=== PATIENT | female | born 1965 | race Asian ===

== ENCOUNTER 2021-08-08 06:53 | Outpatient (CLI) | payer BC ==
[2021-08-08 09:32] LABS: *BILIRUBIN,URIN NEGATIVE (NEGATIVE); *BLOOD, URINE NEGATIVE (NEGATIVE); *CLARITY,URINE CLEAR (CLEAR); *COLOR,URINE YELLOW (YELLOW); *KETONES,URINE NEGATIVE (NEGATIVE); *UROBILINOGEN,URINE 0.2 E.U./dl (NORMAL); LEUKOCYTE ESTERASE ,URINE NEGATIVE (NEGATIVE); NITRITE, URINE NEGATIVE (NEGATIVE); UGLUCOSE NEGATIVE (NEGATIVE)
[2021-08-08 09:53] LABS: HEMATOCRIT 28.2 % (31.2-41.9); MEAN CORPUSCULAR HEMOGLOBIN 18.9 uug (24.7-32.8); MEAN CORPUSCULAR VOLUME 62.4 fL (75.5-95.3); PLATELET COUNT (AUTO) 304 K/uL (179-408)
[2021-08-08 10:13] LABS: THYROID STIMULATING HORMONE 1.294 mIU/mL (0.358-3.740)
[2021-08-08 10:30] LABS: BILIRUBIN,TOTAL 0.8 mg/dL (0.2-1.0); CREATININE 0.8 mg/dL (0.6-1.3); POTASSIUM 3.8 mmol/L (3.5-5.1); URIC ACID 6.2 mg/dL (2.6-6.0)
[2021-08-08 10:44] LABS: TOTAL PROTEIN, SERUM 8.3 g/dL (6.4-8.2)
[2021-08-08 17:06] LABS: BAND % (MANUAL) 1 % (0-10); EOSINOPHILS % (MANUAL) 14 % (0-8); LYMPHOCYTES % (MANUAL) 32 % (20-40); MONOCYTES % (MANUAL) 5 % (2-10); NEUTROPHILS % (MANUAL) 41 % (42-75)
[2021-08-12 16:06] LABS: *VITAMIN D 25-OH, D2 <1.0 ng/mL (.)
== END 2021-08-08 23:59 | disposition home or self-care (01) ==
LOC: LAB 06:53
PROVIDERS: ATTEND Legal Medicine
DX: E11.9 Type 2 diabetes mellitus without complications (principal); E78.5 Hyperlipidemia, unspecified; E03.9 Hypothyroidism, unspecified; D64.9 Anemia, unspecified; E55.9 Vitamin D deficiency, unspecified; Z00.00 Encounter for general adult medical examination without abnormal findings
CPT/HCPCS: 36415; 70030-TC; 82746; 83550; 84443; 84550; 85025; 87086

== ENCOUNTER 2022-08-20 08:11 | Outpatient (CLI) | payer BC ==
[2022-08-20 08:42] LABS: *BILIRUBIN,URIN NEGATIVE (NEGATIVE); *BLOOD, URINE NEGATIVE (NEGATIVE); *CLARITY,URINE CLEAR (CLEAR); *COLOR,URINE YELLOW (YELLOW); *KETONES,URINE NEGATIVE (NEGATIVE); *UROBILINOGEN,URINE 0.2 E.U./dl (NORMAL); LEUKOCYTE ESTERASE ,URINE NEGATIVE (NEGATIVE); NITRITE, URINE NEGATIVE (NEGATIVE); PH,URINE 6.5 (5.0-8.0); UGLUCOSE NEGATIVE (NEGATIVE)
[2022-08-20 08:44] LABS: HEMATOCRIT 44.5 % (31.2-41.9); MEAN CORPUSCULAR HEMOGLOBIN 30.5 uug (24.7-32.8); MEAN CORPUSCULAR VOLUME 89.1 fL (75.5-95.3); PLATELET COUNT (AUTO) 228 K/uL (179-408)
[2022-08-20 09:52] LABS: BILIRUBIN,TOTAL 0.7 mg/dL (0.2-1.0); CREATININE 0.8 mg/dL (0.6-1.3); POTASSIUM 3.8 mmol/L (3.5-5.1); TOTAL PROTEIN, SERUM 8.2 g/dL (6.4-8.2); URIC ACID 6.5 mg/dL (2.6-6.0)
[2022-08-20 10:14] LABS: THYROID STIMULATING HORMONE 1.416 mIU/mL (0.358-3.740)
== END 2022-08-20 23:59 | disposition home or self-care (01) ==
LOC: LAB 08:11
PROVIDERS: ATTEND Legal Medicine
DX: Z00.00 Encounter for general adult medical examination without abnormal findings (principal); E78.00 Pure hypercholesterolemia, unspecified; R53.1 Weakness; I10 Essential (primary) hypertension; D64.9 Anemia, unspecified; E55.9 Vitamin D deficiency, unspecified; E03.9 Hypothyroidism, unspecified
CPT/HCPCS: 36415; 82306; 82746; 83550; 84443; 84550; 85025

== ENCOUNTER 2023-03-13 15:36 | Outpatient (CLI) | payer BC ==
[2023-03-13 16:10] LABS: HEMATOCRIT 25.9 % (31.2-41.9); MEAN CORPUSCULAR HEMOGLOBIN 29.4 uug (24.7-32.8); MEAN CORPUSCULAR VOLUME 87.4 fL (75.5-95.3); PLATELET COUNT (AUTO) 345 K/uL (179-408)
[2023-03-13 16:34] LABS: ALANINE AMINOTRANSFERASE 21 U/L (14-59); ALKALINE PHOSPHATASE 60 U/L (50-136); ASPARTATE AMINOTRANSFERASE 14 U/L (15-37); BILIRUBIN,TOTAL 0.4 mg/dL (0.2-1.0); CARBON DIOXIDE 30 mmol/L (21-32); CHLORIDE 104 mmol/L (98-107); CREATININE 0.8 mg/dL (0.6-1.3); GLUCOSE 100 mg/dL (74-106); POTASSIUM 3.9 mmol/L (3.5-5.1); TOTAL PROTEIN, SERUM 7.7 g/dL (6.4-8.2); UREA NITROGEN, BLOOD 8 mg/dL (7-18)
[2023-03-13 16:51] LABS: IRON, SERUM 13 ug/dL (50-175)
[2023-03-13 19:31] LABS: FERRITIN 8 ng/mL (8-252)
[2023-03-14 06:07] LABS: CANCER ANTIGEN 15-3 37.4 U/mL (0.0-25.0)
== END 2023-03-13 23:59 | disposition home or self-care (01) ==
LOC: LAB 15:36
PROVIDERS: ATTEND Internal Medicine Hematology & Oncology
DX: Z13.228 Encounter for screening for other metabolic disorders (principal); C50.011 Malignant neoplasm of nipple and areola, right female breast; D64.9 Anemia, unspecified; R97.0 Elevated carcinoembryonic antigen [CEA]
CPT/HCPCS: 36415; 82378; 83550; 85025; 86300

== ENCOUNTER 2023-03-14 06:55 | Outpatient (CLI) | payer BC ==
[2023-03-14] MEDS ORDERED: IOHEXOL 300MG/ML 100 ML INFUS..BTL ONE (08:50)
[2023-03-14] MEDS ORDERED: IV NORMAL SALINE 250 ML IV ONE (08:50)
[2023-03-14] MEDS ORDERED: SWABABLE VALVE TRANSFER SET EA MC ONE (08:50)
== END 2023-03-14 23:59 | disposition home or self-care (01) ==
LOC: CT 06:55
PROVIDERS: ATTEND Internal Medicine Hematology & Oncology
DX: Z01.818 Encounter for other preprocedural examination (principal); C50.912 Malignant neoplasm of unspecified site of left female breast; N63.10 Unspecified lump in the right breast, unspecified quadrant; R16.0 Hepatomegaly, not elsewhere classified
CPT/HCPCS: 71270; 71046; 74178; Q9967

== ENCOUNTER 2023-03-21 06:42 | Day surgery (SDC) | payer BC ==
[2023-03-21] MEDS ORDERED: LIDOCAINE HCL 1% 20 ML VIAL ONE (07:33)
[2023-03-21] MEDS ORDERED: FENTANYL CITRATE 100 MCG/2 ML AMPUL ONE (07:35)
[2023-03-21] MEDS ORDERED: CEFAZOLIN 2 G in IV DEXTROSE 5% 100 ML IV ONE (08:00)
[2023-03-21] MEDS ORDERED: HEPARIN/NS 500 ML ONE (09:12)
[2023-03-21] MEDS ORDERED: HEPARIN SODIUM,PORCINE 1,000 UNITS/ML VIAL ONE (09:12)
[2023-03-21] MEDS ORDERED: LIDOCAINE-MPF 2% 5 ML VIAL ONE (10:36)
[2023-03-21] MEDS ORDERED: PROPOFOL 200 MG/20 ML BOTTLE ONE (10:36)
[2023-03-21] MEDS ORDERED: ONDANSETRON 4 MG/2 ML VIAL ONE (11:57)
[2023-03-21 13:00] VITALS: TEMP 97.8
== END 2023-03-21 13:25 | disposition home or self-care (01) ==
LOC: DS 06:42
PROVIDERS: ATTEND Surgery
DX: C50.112 Malignant neoplasm of central portion of left female breast (principal); D50.9 Iron deficiency anemia, unspecified; Z79.899 Other long term (current) drug therapy; Z98.890 Other specified postprocedural states
CPT/HCPCS: 71045; 76937; A4649; A4663; C1788; J0690; J1644; J2405; J3010; J3490

== ENCOUNTER 2023-04-01 12:25 | Outpatient (CLI) | payer BC ==
[~2023-04-01 12:25] MED LIST: FENTANYL 50 MCG/ML SYRINGE IV PRN; FLUMAZENIL 0.5 MG/5 ML VIAL IVP PRN; MIDAZOLAM HCL 2 MG/2 ML VIAL IV PRN; NALOXONE HCL 0.4 MG/ML AMPUL IV PRN
[2023-04-01] MEDS ORDERED: LIDOCAINE HCL 1% 20 ML VIAL ONE (12:50)
== END 2023-04-01 23:59 | disposition home or self-care (01) ==
LOC: CT 12:25
PROVIDERS: ATTEND Internal Medicine Hematology & Oncology
DX: K76.89 Other specified diseases of liver (principal); C50.912 Malignant neoplasm of unspecified site of left female breast; Z79.899 Other long term (current) drug therapy
CPT/HCPCS: 47000; 77012; J2250; J3010; J3490; J7120; 70030-TC; 74150; 88313-TC; 88333-TC; 88341; 88342; 88360; A4663

== ENCOUNTER 2023-04-04 14:19 | Outpatient (CLI) | payer BC | END 2023-04-04 23:59 | disposition home or self-care (01) | LOC: LAB 14:19 → RAD 23:59 | PROVIDERS: ATTEND Internal Medicine Hematology & Oncology | DX: E04.2 Nontoxic multinodular goiter (principal); D64.9 Anemia, unspecified ==

== ENCOUNTER 2023-04-29 07:33 | Outpatient (CLI) | payer BC ==
[~2023-04-29 07:33] MED LIST changes: +ASPI81TA31 PO; -FENTANYL 50 MCG/ML SYRINGE IV PRN; -FLUMAZENIL 0.5 MG/5 ML VIAL IVP PRN; +HYDR-3972 PO; +LIDO30AD10 TP; -MIDAZOLAM HCL 2 MG/2 ML VIAL IV PRN; -NALOXONE HCL 0.4 MG/ML AMPUL IV PRN; +TAMO20TA4 PO
[2023-04-29 08:06] LABS: BASOPHILS % (AUTO) 1.1 % (0.0-2.0); EOSINOPHILS # (AUTO) 0.1 K/uL (0.0-0.7); EOSINOPHILS % (AUTO) 2.1 % (0.0-7.0); HEMATOCRIT 31.2 % (31.2-41.9); HEMOGLOBIN 9.8 g/dL (10.9-14.3); LYMPHOCYTES # (AUTO) 0.9 K/uL (0.8-4.8); LYMPHOCYTES % (AUTO) 20.6 % (20.5-51.5); MEAN CORPUSCULAR HEMOGLOBIN 26.7 uug (24.7-32.8); MEAN CORPUSCULAR HGB CONC 31 g/dL (32.3-35.6); MEAN CORPUSCULAR VOLUME 85.1 fL (75.5-95.3); MONOCYTES # (AUTO) 0.3 K/uL (0.1-1.30); MONOCYTES % (AUTO) 6.1 % (0.0-11.0); NEUTROPHILS # (AUTO) 3.2 K/uL (1.8-8.9); NEUTROPHILS % (AUTO) 70.1 % (38.5-71.5); PLATELET COUNT (AUTO) 263 K/uL (179-408); RED BLOOD CELL COUNT(AUTO) 3.66 MIL/uL (3.63-4.92); RED CELL DISTRIBUTION WIDTH 25.8 % (12.3-17.7); WHITE BLOOD COUNT (AUTO) 4.5 K/uL (3.8-11.8)
[2023-04-29 08:12] LABS: DIFFERENTIAL COMMENT 1
[2023-04-29 08:32] LABS: ALBUMIN 3.7 g/dL (3.4-5.0); BILIRUBIN,TOTAL 0.4 mg/dL (0.2-1.0); CALCIUM 8.2 mg/dL (8.5-10.1); CREATININE 0.7 mg/dL (0.6-1.3); POTASSIUM 3.6 mmol/L (3.5-5.1); TOTAL PROTEIN, SERUM 7.3 g/dL (6.4-8.2)
== END 2023-04-29 23:59 | disposition home or self-care (01) ==
LOC: LAB 07:33
PROVIDERS: ATTEND Internal Medicine Hematology & Oncology
DX: Z13.228 Encounter for screening for other metabolic disorders (principal); D64.9 Anemia, unspecified
CPT/HCPCS: 36415; 83550; 85025

== ENCOUNTER 2023-06-17 09:13 | Outpatient (CLI) | payer BC ==
[2023-06-17 09:39] LABS: BASOPHILS % (AUTO) 0.2 % (0.0-2.0); EOSINOPHILS # (AUTO) 0.2 K/uL (0.0-0.7); EOSINOPHILS % (AUTO) 1.5 % (0.0-7.0); HEMATOCRIT 25.7 % (31.2-41.9); HEMOGLOBIN 8.2 g/dL (10.9-14.3); LYMPHOCYTES # (AUTO) 1.2 K/uL (0.8-4.8); LYMPHOCYTES % (AUTO) 7.8 % (20.5-51.5); MEAN CORPUSCULAR HEMOGLOBIN 28.2 uug (24.7-32.8); MEAN CORPUSCULAR HGB CONC 32 g/dL (32.3-35.6); MEAN CORPUSCULAR VOLUME 88.5 fL (75.5-95.3); MONOCYTES # (AUTO) 0.5 K/uL (0.1-1.30); MONOCYTES % (AUTO) 3.6 % (0.0-11.0); NEUTROPHILS # (AUTO) 12.9 K/uL (1.8-8.9); NEUTROPHILS % (AUTO) 86.9 % (38.5-71.5); PLATELET COUNT (AUTO) 180 K/uL (179-408); RED BLOOD CELL COUNT(AUTO) 2.91 MIL/uL (3.63-4.92); RED CELL DISTRIBUTION WIDTH 21.2 % (12.3-17.7); WHITE BLOOD COUNT (AUTO) 14.9 K/uL (3.8-11.8)
[2023-06-17 09:52] LABS: ALBUMIN 3.4 g/dL (3.4-5.0); BILIRUBIN,TOTAL 0.4 mg/dL (0.2-1.0); CALCIUM 9.1 mg/dL (8.5-10.1); CREATININE 0.7 mg/dL (0.6-1.3); TOTAL PROTEIN, SERUM 6.6 g/dL (6.4-8.2)
[2023-06-17 10:16] LABS: DIFFERENTIAL COMMENT 1
== END 2023-06-17 23:59 | disposition home or self-care (01) ==
LOC: LAB 09:13
PROVIDERS: ATTEND Internal Medicine Hematology & Oncology
DX: Z13.228 Encounter for screening for other metabolic disorders (principal); D64.9 Anemia, unspecified
CPT/HCPCS: 36415; 85025

== ENCOUNTER 2023-10-07 09:45 | Outpatient (CLI) | payer BC ==
[2023-10-07 10:39] LABS: BASOPHILS % (AUTO) 0.9 % (0.0-2.0); EOSINOPHILS # (AUTO) 0.1 K/uL (0.0-0.7); EOSINOPHILS % (AUTO) 2.2 % (0.0-7.0); HEMATOCRIT 39.3 % (31.2-41.9); LYMPHOCYTES # (AUTO) 1.3 K/uL (0.8-4.8); LYMPHOCYTES % (AUTO) 25.1 % (20.5-51.5); MEAN CORPUSCULAR HEMOGLOBIN 29.7 uug (24.7-32.8); MEAN CORPUSCULAR HGB CONC 33 g/dL (32.3-35.6); MEAN CORPUSCULAR VOLUME 89.4 fL (75.5-95.3); MONOCYTES # (AUTO) 0.3 K/uL (0.1-1.30); MONOCYTES % (AUTO) 5.5 % (0.0-11.0); NEUTROPHILS # (AUTO) 3.4 K/uL (1.8-8.9); NEUTROPHILS % (AUTO) 66.3 % (38.5-71.5); PLATELET COUNT (AUTO) 313 K/uL (179-408); RED BLOOD CELL COUNT(AUTO) 4.39 MIL/uL (3.63-4.92); RED CELL DISTRIBUTION WIDTH 14.5 % (12.3-17.7); WHITE BLOOD COUNT (AUTO) 5.1 K/uL (3.8-11.8)
[2023-10-07 10:43] LABS: DIFFERENTIAL COMMENT 1
[2023-10-07 11:00] LABS: ALBUMIN 3.8 g/dL (3.4-5.0); BILIRUBIN,TOTAL 0.3 mg/dL (0.2-1.0); CALCIUM 9.2 mg/dL (8.5-10.1); CREATININE 0.6 mg/dL (0.6-1.3); POTASSIUM 4.3 mmol/L (3.5-5.1); TOTAL PROTEIN, SERUM 7.8 g/dL (6.4-8.2)
== END 2023-10-07 23:59 | disposition home or self-care (01) ==
LOC: LAB 09:45
PROVIDERS: ATTEND Internal Medicine Hematology & Oncology
DX: Z13.228 Encounter for screening for other metabolic disorders (principal); D64.9 Anemia, unspecified
CPT/HCPCS: 36415; 83550; 85025

== ENCOUNTER 2023-10-28 09:40 | Outpatient (CLI) | payer BC ==
[2023-10-28 10:17] LABS: BASOPHILS % (AUTO) 0.6 % (0.0-2.0); EOSINOPHILS # (AUTO) 0.1 K/uL (0.0-0.7); EOSINOPHILS % (AUTO) 2.2 % (0.0-7.0); HEMATOCRIT 40.4 % (31.2-41.9); HEMOGLOBIN 13.4 g/dL (10.9-14.3); LYMPHOCYTES # (AUTO) 1.1 K/uL (0.8-4.8); MEAN CORPUSCULAR HEMOGLOBIN 30.1 uug (24.7-32.8); MEAN CORPUSCULAR HGB CONC 33 g/dL (32.3-35.6); MEAN CORPUSCULAR VOLUME 90.6 fL (75.5-95.3); MONOCYTES # (AUTO) 0.3 K/uL (0.1-1.30); MONOCYTES % (AUTO) 5.7 % (0.0-11.0); NEUTROPHILS # (AUTO) 3.9 K/uL (1.8-8.9); NEUTROPHILS % (AUTO) 71.5 % (38.5-71.5); PLATELET COUNT (AUTO) 215 K/uL (179-408); RED BLOOD CELL COUNT(AUTO) 4.46 MIL/uL (3.63-4.92); RED CELL DISTRIBUTION WIDTH 15.3 % (12.3-17.7); WHITE BLOOD COUNT (AUTO) 5.5 K/uL (3.8-11.8)
[2023-10-28 10:33] LABS: DIFFERENTIAL COMMENT 1
[2023-10-28 11:17] LABS: ALBUMIN 3.6 g/dL (3.4-5.0); BILIRUBIN,TOTAL 0.4 mg/dL (0.2-1.0); CALCIUM 8.3 mg/dL (8.5-10.1); CREATININE 0.7 mg/dL (0.6-1.3); POTASSIUM 3.9 mmol/L (3.5-5.1); TOTAL PROTEIN, SERUM 7.3 g/dL (6.4-8.2)
[2023-10-29 08:10] LABS: CANCER ANTIGEN 15-3 43.7 U/mL (0.0-25.0); CARCINOEMBRYONIC AG (CEA) 13.3 ng/mL (0.0-4.7)
== END 2023-10-28 23:59 | disposition home or self-care (01) ==
LOC: LAB 09:40
PROVIDERS: ATTEND Internal Medicine Hematology & Oncology
DX: Z13.228 Encounter for screening for other metabolic disorders (principal); C50.011 Malignant neoplasm of nipple and areola, right female breast; D64.9 Anemia, unspecified; R97.0 Elevated carcinoembryonic antigen [CEA]
CPT/HCPCS: 36415; 82378; 83550; 85025; 86300

== ENCOUNTER 2023-11-01 13:11 | Outpatient (CLI) | payer BC | END 2023-11-01 23:59 | disposition home or self-care (01) | LOC: RAD 13:11 | PROVIDERS: ATTEND Internal Medicine Hematology & Oncology | DX: E04.2 Nontoxic multinodular goiter (principal) ==

== ENCOUNTER 2024-04-17 08:49 | Outpatient (CLI) | payer BC ==
[2024-04-17] MEDS ORDERED: IOHEXOL 300MG/ML 100 ML INFUS..BTL ONE (09:44)
[2024-04-17] MEDS ORDERED: SWABABLE VALVE TRANSFER SET EA MC ONE (09:44)
[2024-04-17 09:45] LABS: BASOPHILS # (AUTO) 0.1 K/UL (0.0-0.2); BASOPHILS % (AUTO) 0.8 % (0.0-2.0); EOSINOPHILS # (AUTO) 0.2 K/uL (0.0-0.7); EOSINOPHILS % (AUTO) 2.5 % (0.0-7.0); HEMATOCRIT 40.9 % (31.2-41.9); HEMOGLOBIN 13.5 g/dL (10.9-14.3); MEAN CORPUSCULAR HEMOGLOBIN 33.5 uug (24.7-32.8); MEAN CORPUSCULAR HGB CONC 33 g/dL (32.3-35.6); MEAN CORPUSCULAR VOLUME 101.6 fL (75.5-95.3); MONOCYTES # (AUTO) 0.6 K/uL (0.1-1.30); MONOCYTES % (AUTO) 7.7 % (0.0-11.0); NEUTROPHILS # (AUTO) 5.9 K/uL (1.8-8.9); PLATELET COUNT (AUTO) 148 K/uL (179-408); RED BLOOD CELL COUNT(AUTO) 4.02 MIL/uL (3.63-4.92); RED CELL DISTRIBUTION WIDTH 15.2 % (12.3-17.7); WHITE BLOOD COUNT (AUTO) 7.8 K/uL (3.8-11.8)
[2024-04-17] MEDS ORDERED: IV NORMAL SALINE 250 ML IV ONE (09:45)
[2024-04-17 09:51] LABS: DIFFERENTIAL COMMENT 1
[2024-04-17 10:03] LABS: ALBUMIN 3.8 g/dL (3.4-5.0); BILIRUBIN,TOTAL 0.9 mg/dL (0.2-1.0); CREATININE 0.6 mg/dL (0.6-1.3); POTASSIUM 3.5 mmol/L (3.5-5.1); TOTAL PROTEIN, SERUM 7.6 g/dL (6.4-8.2)
[2024-04-18 08:11] LABS: CANCER ANTIGEN 15-3 44.6 U/mL (0.0-25.0); CARCINOEMBRYONIC AG (CEA) 5.1 ng/mL (0.0-4.7)
== END 2024-04-17 23:59 | disposition home or self-care (01) ==
LOC: LAB 08:49
PROVIDERS: ATTEND Internal Medicine Hematology & Oncology
DX: C50.919 Malignant neoplasm of unspecified site of unspecified female breast (principal); K57.30 Diverticulosis of large intestine without perforation or abscess without bleeding; D50.9 Iron deficiency anemia, unspecified
CPT/HCPCS: 71270; 80053; 85025; 36415; 74178; 82378; 86300; Q9967

== ENCOUNTER 2024-05-08 09:02 | Outpatient (CLI) | payer BC ==
[2024-05-08 10:02] LABS: BASOPHILS # (AUTO) 0.2 K/UL (0.0-0.2); BASOPHILS % (AUTO) 3.2 % (0.0-2.0); EOSINOPHILS # (AUTO) 0.2 K/uL (0.0-0.7); EOSINOPHILS % (AUTO) 4.2 % (0.0-7.0); HEMATOCRIT 36.8 % (31.2-41.9); HEMOGLOBIN 12.3 g/dL (10.9-14.3); LYMPHOCYTES # (AUTO) 0.6 K/uL (0.8-4.8); MEAN CORPUSCULAR HEMOGLOBIN 34.3 uug (24.7-32.8); MEAN CORPUSCULAR HGB CONC 34 g/dL (32.3-35.6); MEAN CORPUSCULAR VOLUME 102.4 fL (75.5-95.3); MONOCYTES # (AUTO) 0.3 K/uL (0.1-1.30); MONOCYTES % (AUTO) 5.2 % (0.0-11.0); NEUTROPHILS % (AUTO) 76.4 % (38.5-71.5); PLATELET COUNT (AUTO) 148 K/uL (179-408); RED BLOOD CELL COUNT(AUTO) 3.59 MIL/uL (3.63-4.92); RED CELL DISTRIBUTION WIDTH 16.2 % (12.3-17.7); WHITE BLOOD COUNT (AUTO) 5.2 K/uL (3.8-11.8)
[2024-05-08 10:14] LABS: DIFFERENTIAL COMMENT 1
[2024-05-08 10:20] LABS: ALBUMIN 3.5 g/dL (3.4-5.0); CALCIUM 8.8 mg/dL (8.5-10.1); CREATININE 0.6 mg/dL (0.6-1.3); POTASSIUM 3.4 mmol/L (3.5-5.1); TOTAL PROTEIN, SERUM 6.9 g/dL (6.4-8.2)
[2024-05-09 08:07] LABS: CANCER ANTIGEN 15-3 37.9 U/mL (0.0-25.0); CARCINOEMBRYONIC AG (CEA) 4.8 ng/mL (0.0-4.7)
== END 2024-05-08 23:59 | disposition home or self-care (01) ==
LOC: EDBD → LAB 09:02
PROVIDERS: ATTEND Internal Medicine Hematology & Oncology
DX: Z13.228 Encounter for screening for other metabolic disorders (principal); C50.011 Malignant neoplasm of nipple and areola, right female breast; D64.9 Anemia, unspecified; R97.0 Elevated carcinoembryonic antigen [CEA]
CPT/HCPCS: 36415; 82378; 85025; 86300

== ENCOUNTER 2024-06-01 07:36 | Outpatient (CLI) | payer BC ==
[2024-06-01 08:10] LABS: BASOPHILS % (AUTO) 0.5 % (0.0-2.0); EOSINOPHILS # (AUTO) 0.2 K/uL (0.0-0.7); HEMATOCRIT 40.2 % (31.2-41.9); HEMOGLOBIN 13.2 g/dL (10.9-14.3); LYMPHOCYTES # (AUTO) 0.7 K/uL (0.8-4.8); LYMPHOCYTES % (AUTO) 17.6 % (20.5-51.5); MEAN CORPUSCULAR HEMOGLOBIN 34.3 uug (24.7-32.8); MEAN CORPUSCULAR HGB CONC 33 g/dL (32.3-35.6); MEAN CORPUSCULAR VOLUME 104.3 fL (75.5-95.3); MONOCYTES # (AUTO) 0.5 K/uL (0.1-1.30); MONOCYTES % (AUTO) 11.9 % (0.0-11.0); NEUTROPHILS # (AUTO) 2.6 K/uL (1.8-8.9); PLATELET COUNT (AUTO) 141 K/uL (179-408); RED BLOOD CELL COUNT(AUTO) 3.85 MIL/uL (3.63-4.92); RED CELL DISTRIBUTION WIDTH 17.2 % (12.3-17.7); WHITE BLOOD COUNT (AUTO) 3.9 K/uL (3.8-11.8)
[2024-06-01 08:11] LABS: DIFFERENTIAL COMMENT 1
[2024-06-01 08:22] LABS: ALBUMIN 3.5 g/dL (3.4-5.0); BILIRUBIN,TOTAL 1.2 mg/dL (0.2-1.0); CREATININE 0.6 mg/dL (0.6-1.3); POTASSIUM 3.8 mmol/L (3.5-5.1); TOTAL PROTEIN, SERUM 7.1 g/dL (6.4-8.2)
[2024-06-02 08:10] LABS: CANCER ANTIGEN 15-3 38.9 U/mL (0.0-25.0); CARCINOEMBRYONIC AG (CEA) 5.3 ng/mL (0.0-4.7)
== END 2024-06-01 23:59 | disposition home or self-care (01) ==
LOC: LAB 07:36
PROVIDERS: ATTEND Internal Medicine Hematology & Oncology
DX: Z13.228 Encounter for screening for other metabolic disorders (principal); C50.011 Malignant neoplasm of nipple and areola, right female breast; R97.0 Elevated carcinoembryonic antigen [CEA]; D64.9 Anemia, unspecified
CPT/HCPCS: 36415; 82378; 85025; 86300

== ENCOUNTER 2024-06-26 09:26 | Outpatient (CLI) | payer BC ==
[2024-06-26 10:00] LABS: BASOPHILS % (AUTO) 0.9 % (0.0-2.0); EOSINOPHILS # (AUTO) 0.2 K/uL (0.0-0.7); EOSINOPHILS % (AUTO) 3.9 % (0.0-7.0); HEMATOCRIT 38.8 % (31.2-41.9); HEMOGLOBIN 13.2 g/dL (10.9-14.3); LYMPHOCYTES # (AUTO) 0.9 K/uL (0.8-4.8); LYMPHOCYTES % (AUTO) 21.9 % (20.5-51.5); MEAN CORPUSCULAR HEMOGLOBIN 35.3 uug (24.7-32.8); MEAN CORPUSCULAR HGB CONC 34 g/dL (32.3-35.6); MEAN CORPUSCULAR VOLUME 103.9 fL (75.5-95.3); MONOCYTES # (AUTO) 0.3 K/uL (0.1-1.30); MONOCYTES % (AUTO) 7.9 % (0.0-11.0); NEUTROPHILS # (AUTO) 2.6 K/uL (1.8-8.9); NEUTROPHILS % (AUTO) 65.4 % (38.5-71.5); PLATELET COUNT (AUTO) 114 K/uL (179-408); RED BLOOD CELL COUNT(AUTO) 3.73 MIL/uL (3.63-4.92); RED CELL DISTRIBUTION WIDTH 16.4 % (12.3-17.7); WHITE BLOOD COUNT (AUTO) 3.9 K/uL (3.8-11.8)
[2024-06-26 10:04] LABS: DIFFERENTIAL COMMENT 1
[2024-06-26 10:52] LABS: CREATININE 0.5 mg/dL (0.6-1.3); POTASSIUM 3.8 mmol/L (3.5-5.1)
[2024-06-26 10:53] LABS: ALBUMIN 3.6 g/dL (3.4-5.0); BILIRUBIN,TOTAL 1.1 mg/dL (0.2-1.0); TOTAL PROTEIN, SERUM 7.1 g/dL (6.4-8.2)
[2024-06-27 06:07] LABS: CANCER ANTIGEN 15-3 34.8 U/mL (0.0-25.0); CARCINOEMBRYONIC AG (CEA) 5.9 ng/mL (0.0-4.7)
== END 2024-06-26 23:59 | disposition home or self-care (01) ==
LOC: LAB 09:26
PROVIDERS: ATTEND Internal Medicine Hematology & Oncology
DX: Z13.228 Encounter for screening for other metabolic disorders (principal); C50.011 Malignant neoplasm of nipple and areola, right female breast; R97.0 Elevated carcinoembryonic antigen [CEA]; D64.9 Anemia, unspecified
CPT/HCPCS: 36415; 82378; 85025; 86300

== ENCOUNTER 2024-07-17 08:57 | Outpatient (CLI) | payer BC ==
[2024-07-17 09:51] LABS: BASOPHILS % (AUTO) 0.4 % (0.0-2.0); EOSINOPHILS # (AUTO) 0.1 K/uL (0.0-0.7); EOSINOPHILS % (AUTO) 2.6 % (0.0-7.0); HEMATOCRIT 37.3 % (31.2-41.9); HEMOGLOBIN 12.7 g/dL (10.9-14.3); LYMPHOCYTES # (AUTO) 0.7 K/uL (0.8-4.8); LYMPHOCYTES % (AUTO) 13.5 % (20.5-51.5); MEAN CORPUSCULAR HGB CONC 34 g/dL (32.3-35.6); MEAN CORPUSCULAR VOLUME 103.1 fL (75.5-95.3); MONOCYTES # (AUTO) 0.4 K/uL (0.1-1.30); MONOCYTES % (AUTO) 7.1 % (0.0-11.0); NEUTROPHILS # (AUTO) 4.1 K/uL (1.8-8.9); NEUTROPHILS % (AUTO) 76.4 % (38.5-71.5); PLATELET COUNT (AUTO) 128 K/uL (179-408); RED BLOOD CELL COUNT(AUTO) 3.62 MIL/uL (3.63-4.92); RED CELL DISTRIBUTION WIDTH 14.4 % (12.3-17.7); WHITE BLOOD COUNT (AUTO) 5.4 K/uL (3.8-11.8)
[2024-07-17 10:08] LABS: DIFFERENTIAL COMMENT 1
[2024-07-17 10:10] LABS: ALBUMIN 3.6 g/dL (3.4-5.0); CALCIUM 9.3 mg/dL (8.5-10.1); CREATININE 0.6 mg/dL (0.6-1.3); TOTAL PROTEIN, SERUM 7.1 g/dL (6.4-8.2)
[2024-07-18 11:06] LABS: CANCER ANTIGEN 15-3 33.2 U/mL (0.0-25.0); CARCINOEMBRYONIC AG (CEA) 5.6 ng/mL (0.0-4.7)
== END 2024-07-17 23:59 | disposition home or self-care (01) ==
LOC: LAB 08:57
PROVIDERS: ATTEND Internal Medicine Hematology & Oncology
DX: Z13.228 Encounter for screening for other metabolic disorders (principal); C50.411 Malignant neoplasm of upper-outer quadrant of right female breast; D64.9 Anemia, unspecified; R97.0 Elevated carcinoembryonic antigen [CEA]
CPT/HCPCS: 36415; 82378; 85025; 86300

== ENCOUNTER 2025-04-16 08:44 | Outpatient (CLI) | payer BC ==
[2025-04-16] MEDS ORDERED: SWABABLE VALVE TRANSFER SET EA MC ONE (09:19)
[2025-04-16] MEDS ORDERED: IV NORMAL SALINE 250 ML IV ONE (09:19)
[2025-04-16] MEDS ORDERED: IOHEXOL 300MG/ML 100 ML INFUS..BTL ONE (09:19)
[2025-04-16 09:21] LABS: PLATELET COUNT (AUTO) 96 K/uL (179-408); RED BLOOD CELL COUNT(AUTO) 3.36 MIL/uL (3.63-4.92); RED CELL DISTRIBUTION WIDTH 16.0 % (12.3-17.7); WHITE BLOOD COUNT (AUTO) 5.0 K/uL (3.8-11.8)
[2025-04-16 09:27] LABS: EOSINOPHILS % (MANUAL) 3 % (0-8); LYMPHOCYTES % (MANUAL) 12 % (20-40); MONOCYTES % (MANUAL) 8 % (2-10); NEUTROPHILS % (MANUAL) 77 % (42-75); PLATELET ESTIMATE DECREASED
[2025-04-16 09:36] LABS: ASPARTATE AMINOTRANSFERASE 44.0 U/L (15-37); CREATININE 0.6 mg/dL (0.6-1.3); SODIUM SERUM 146.0 mmol/L (136-145); TOTAL PROTEIN, SERUM 6.5 g/dL (6.4-8.2); UREA NITROGEN, BLOOD 10.0 mg/dL (7-18)
[2025-04-17 05:08] LABS: CANCER ANTIGEN 15-3 35.3 U/mL (0.0-25.0); CARCINOEMBRYONIC AG (CEA) 5.5 ng/mL (0.0-4.7)
== END 2025-04-16 23:59 | disposition home or self-care (01) ==
LOC: LAB 08:44
PROVIDERS: ATTEND Internal Medicine Hematology & Oncology
DX: R16.1 Splenomegaly, not elsewhere classified (principal); K86.2 Cyst of pancreas; C50.011 Malignant neoplasm of nipple and areola, right female breast; Z13.228 Encounter for screening for other metabolic disorders; D64.9 Anemia, unspecified; C50.012 Malignant neoplasm of nipple and areola, left female breast; R97.0 Elevated carcinoembryonic antigen [CEA]; J98.11 Atelectasis
CPT/HCPCS: 71270; 80053; 85007; 85027; 74178; 82378; 86300; Q9967; 36415; 70030-TC

== ENCOUNTER 2025-08-27 09:04 | Outpatient (CLI) | payer BC ==
[2025-08-27 09:37] LABS: PLATELET COUNT (AUTO) 91 K/uL (179-408); RED BLOOD CELL COUNT(AUTO) 3.93 MIL/uL (3.63-4.92); RED CELL DISTRIBUTION WIDTH 15.1 % (12.3-17.7); WHITE BLOOD COUNT (AUTO) 6.0 K/uL (3.8-11.8)
[2025-08-27] MEDS ORDERED: IOHEXOL 300MG/ML 100 ML INFUS..BTL ONE (09:43)
[2025-08-27 09:54] LABS: ASPARTATE AMINOTRANSFERASE 44.0 U/L (15-37); CREATININE 0.6 mg/dL (0.6-1.3); SODIUM SERUM 146.0 mmol/L (136-145); TOTAL PROTEIN, SERUM 7.0 g/dL (6.4-8.2); UREA NITROGEN, BLOOD 11.0 mg/dL (7-18)
[2025-08-27 11:24] LABS: EOSINOPHILS % (MANUAL) 3 % (0-8); LYMPHOCYTES % (MANUAL) 11 % (20-40); MONOCYTES % (MANUAL) 5 % (2-10); NEUTROPHILS % (MANUAL) 81 % (42-75); PLATELET ESTIMATE DECREASED
[2025-08-28 08:07] LABS: CANCER ANTIGEN 15-3 49.5 U/mL (0.0-25.0); CARCINOEMBRYONIC AG (CEA) 95.6 ng/mL (0.0-4.7)
== END 2025-08-27 23:59 | disposition home or self-care (01) ==
LOC: LAB 09:04
PROVIDERS: ATTEND Internal Medicine Hematology & Oncology
DX: C50.919 Malignant neoplasm of unspecified site of unspecified female breast (principal); K76.9 Liver disease, unspecified; R16.1 Splenomegaly, not elsewhere classified; D73.4 Cyst of spleen; K57.30 Diverticulosis of large intestine without perforation or abscess without bleeding; J98.11 Atelectasis; E04.2 Nontoxic multinodular goiter
CPT/HCPCS: 71270; 80053; 85007; 85027; 36415; 74178; 82378; 86300; Q9967; 70030-TC